=== PATIENT | female | born 1975 | race African-American/Black ===

== ENCOUNTER 2017-02-07 18:30 | Emergency (ER) | payer SELFPAY ==
[~2017-02-07] VITALS: Ht 170.2 cm; Wt 90.0 kg
[~2017-02-07 18:30] MED LIST: PREN0.01 PO
[2017-02-07 18:32] VITALS: BP 140/96; PULSE 89; RESP 13; TEMP 98.6; O2SAT 99
--- NOTE | 2017-02-07 19:55 | PD ---
HPI Chief Complaint: Respiratory Symptoms Time Seen by Provider: 19:49 Travel History International Travel<30 days: No Contact w/Intl Traveler<30days: No Traveled to known affect area: No History of Present Illness HPI 41 year-old female presents to the emergency department for complaint of left upper back and anterior chest pain with shortness of breath. Symptoms began suddenly this morning. Patient states she presented to the emergency department because of complaint of shortness of breath. Patient denies any previous history of similar symptoms. Patient denies personal history of clotting disorder or family history of clotting disorder recent long distance travel or protracted bedrest her surgery also denies any history of hypertension dyslipidemia cardiac disease diabetes does admit to tobacco use and occasional marijuana use. Patient's had no fever no chills no cough no productive phlegm. Patient denies any pain in her legs or swelling in the calves or pain with ambulation. Patient denies abdominal pain. No nausea or vomiting. Patient states she felt well all day yesterday felt well last evening with a bed and awakened this morning feeling well was ironing her daughter's clothing and had sudden onset left upper back and chest pain. Patient describes it as sharp and worsened with dense inspiratory effort. Patient took a one-time dose of ibuprofen 200 mg as taken no other medications. Patient rates her pain 8-10 over 10 in intensity. PFSH Past Medical History Narrative Medical Hernia, herniorrhaphy, , tubal ligation; tobacco use; marijuana use; med nursing notes reviewed Medical History: Denies Significant Hx Cardiovascular Problems: No Diminished Hearing: No Endocrine: No Genitourinary: No Immune Disorder: No Musculoskeletal: No Neurologic: No Psychiatric: No Respiratory: No Immunizations Current: No ?: Not LMP: JAN 2017 : 5 Para: 5 Miscarriage: 0 : 0 Tubal Ligation: Yes (ON 06/2015) Past Surgical History Section: Yes (1) Gynecologic Surgery: Yes (, TUBAL LIGATION ) Other Surgery: Yes (herina ) Social History Alcohol Use: No Tobacco Use: Yes (1 PPD x 10 years) Substance Use: No Allergies-Medications (Allergen,Severity, Reaction): Coded Allergies: *MDRO Multi-Drug Resistant Organism (Verified Adverse Reaction, Unknown, ) MRSA PCR Screen positive 04/20/15. MRSA abdominal wound 04/2015 Reported Meds & Prescriptions Reported Meds & Active Scripts Active Robaxin (Methocarbamol) 750 Mg Tab 750 Mg PO Q6HR Ibuprofen 800 Mg Tab 800 Mg PO Q8H PRN Review of Systems Except as stated in HPI: all other systems reviewed are Neg Physical Exam Narrative GENERAL: Well-developed well-nourished female in no acute distress no respiratory distress SKIN: Warm and dry. HEAD: Normocephalic. EYES: No scleral icterus. No injection or drainage. NECK: Supple, trachea midline. No JVD or lymphadenopathy. Right upper back and trapezius distribution mild tenderness to palpation. CARDIOVASCULAR: Regular rate and rhythm without murmurs, gallops, or rubs. Chest wall: Nontender to palpation. RESPIRATORY: Breath sounds equal bilaterally. No accessory muscle use. GASTROINTESTINAL: Abdomen soft, non-tender, nondistended. MUSCULOSKELETAL: No cyanosis, or edema. Negative Homans sign. Bilateral radial and dorsalis pedis pulses 2+ to palpation. Capillary refill brisk and less than 2 seconds per digit. BACK: Nontender without obvious deformity. No CVA tenderness. Data Data Last Documented VS Vital Signs Date Time Temp Pulse Resp B/P (MAP) Pulse Ox O2 Delivery O2 Flow Rate FiO2 02/07/17 21:27 84 18 134/62 (86) 97 02/07/17 19:57 Room Air 02/07/17 18:32 98.6 Orders Orders Chest, Pa & Lat (02/07/17 ) Ed Urine Pregnancytest Poc (02/07/17 19:49) Urinalysis - C+S If Indicated (02/07/17 19:49) Electrocardiogram (02/07/17 ) Troponin I (02/07/17 19:49) Ketorolac Inj (Toradol Inj) (02/07/17 20:00) D-Dimer (02/07/17 19:49) Complete Blood Count With Diff (02/07/17 19:49) Basic Metabolic Panel (Bmp) (02/07/17 19:49) Methocarbamol (Robaxin) (02/07/17 21:15) Labs Laboratory Tests Test 02/07/17 20:00 02/07/17 20:05 Urine Color YELLOW Urine Turbidity CLEAR Urine pH 6.5 Urine Specific [place] 1.028 Urine Protein TRACE mg/dL Urine Glucose (UA) NEG mg/dL Urine Ketones NEG mg/dL Urine Occult Blood SMALL Urine Nitrite NEG Urine Bilirubin NEG Urine Urobilinogen 2.0 MG/DL Urine Leukocyte Esterase TRACE Urine RBC 22 /hpf Urine WBC 2 /hpf Urine Squamous Epithelial Cells 4 /hpf Urine Mucus FEW /lpf Microscopic Urinalysis Comment CULT NOT INDICATED White Blood Count 8.9 TH/MM3 Red Blood Count 3.50 MIL/MM3 Hemoglobin 11.7 GM/DL Hematocrit 34.5 % Mean Corpuscular Volume 98.5 FL Mean Corpuscular Hemoglobin 33.3 PG Mean Corpuscular Hemoglobin Concent 33.8 % Red Cell Distribution Width 12.7 % Platelet Count 286 TH/MM3 Mean Platelet Volume 7.2 FL Neutrophils (%) (Auto) 55.1 % Lymphocytes (%) (Auto) 35.5 % Monocytes (%) (Auto) 6.3 % Eosinophils (%) (Auto) 2.2 % Basophils (%) (Auto) 0.9 % Neutrophils # (Auto) 4.9 TH/MM3 Lymphocytes # (Auto) 3.2 TH/MM3 Monocytes # (Auto) 0.6 TH/MM3 Eosinophils # (Auto) 0.2 TH/MM3 Basophils # (Auto) 0.1 TH/MM3 CBC Comment DIFF FINAL Differential Comment D-Dimer Quantitative (PE/DVT) 0.32 MG/L FEU Blood Urea Nitrogen 12 MG/DL Creatinine 0.73 MG/DL Random Glucose 87 MG/DL Calcium Level 8.6 MG/DL Sodium Level 138 MEQ/L Potassium Level 3.6 MEQ/L Chloride Level 107 MEQ/L Carbon Dioxide Level 26.2 MEQ/L Anion Gap 5 MEQ/L Estimat Glomerular Filtration Rate 107 ML/MIN Troponin I LESS THAN 0.02 NG/ML MDM Medical Decision Making Medical Screen Exam Complete: Yes Emergency Medical Condition: Yes Medical Record Reviewed: Yes Interpretation(s) EKG sinus rhythm rate [address] elevation or injury pattern change noted age-indeterminate QS noted septally Last Impressions Chest X-Ray 02/07/17 0000 Signed Impressions: Service Date/Time: Tuesday, February 07, 2017 20:28 - CONCLUSION: No acute disease. Marcial Roman MD Vital Signs Date Time Temp Pulse Resp B/P (MAP) Pulse Ox O2 Delivery O2 Flow Rate FiO2 02/07/17 19:57 66 16 150/80 (103) 100 Room Air 02/07/17 18:52 18 97 Room Air 02/07/17 18:32 98.6 89 13 140/96 (111) 99 CBC & BMP Diagram 02/07/17 20:05 Calcium Level 8.6 Differential Diagnosis Shortness of breath, pleurisy, costochondritis, musculoskeletal pain, pneumothorax, PE, esophageal spasm, ACS Narrative Course IV access obtained systems collected and sent for resulting EKG and chest x-ray ordered; patient administered Toradol 30 mg IV after [id number] hCG EKG sinus rhythm no acute ST elevation or injury pattern change age- indeterminate QS noted septally Chest x-ray no lobar infiltrate no pneumothorax no acute process CBC is automated differential values in normal range; BNP values in normal range ; troponin I less than 0.02, not elevated; d-dimer 0.32, not elevated; urinalysis a few red blood cells otherwise no acute process a culture is not indicated normal specific gravity no protein; point hCG is negative Patient markedly improved after IV Toradol; patient did note recurrent pain when she reached across the stretcher to try to reach the call sparks because recurrent pain again supportive of left upper back parascapular trapezius strain. No upper or lower extremity numbness tingling or weakness and no tenderness of the cervical spine. No radiculopathy. Patient is stable for outpatient management and will be given prescription for weight-based ibuprofen and Robaxin. Diagnosis Primary Impression: Strain of left trapezius muscle Qualified Codes: S46.812A - Strain of other muscles, fascia and tendons at shoulder and upper arm level, left arm, initial encounter Referrals: Primary Care Physician call for appointment Patient Instructions: General Instructions Additional Instructions: Take medications as prescribed May apply ice pack intermittently to areas soft tissue inflammation for the first 12-24 hours then may change to moist heat for comfort Follow-up with primary care provider Return to the emergency for any concerns or change in condition Avoid lifting anything greater than 5 pounds with the left upper extremity over the next 2-3 days or twisting/reaching across the body or overhead. Med/Other Pt SpecificInfo: Prescription(s) given Scripts Methocarbamol (Robaxin) 750 Mg Tab 750 MG PO Q6HR for Muscle Spasm, #12 TAB 0 Refills Prov: Norma Jane MD 02/07/17 Ibuprofen (Ibuprofen) 800 Mg Tab 800 MG PO Q8H Y for PAIN GREATER THAN 5, #10 TAB 0 Refills Prov: Norma Jane MD 02/07/17 Disposition: 01 DISCHARGE HOME Condition: Stable Norma Jane MD Feb 07, 2017 19:55
[2017-02-07 19:57] VITALS: BP 150/80; PULSE 66; RESP 16; O2SAT 100
[2017-02-07] MEDS ORDERED: KETOROLAC TROMETHAMINE 30 MG/ML (IVP) VIAL IV PUSH ONE (20:00)
[2017-02-07 20:20] LABS: AUTOMATED NEUTROPHIL # 4.9 TH/MM3 (1.8-7.7); BASOPHIL # 0.1 TH/MM3 (0-0.2); BASOPHIL % 0.9 % (0.0-2.0); EOSINOPHIL # 0.2 TH/MM3 (0-0.4); EOSINOPHIL % 2.2 % (0.0-4.0); HEMATOCRIT 34.5 % (35.0-46.0); HEMO FLAGS DIFF FINAL; LYMPH % 35.5 % (9.0-44.0); LYMPHOCYTE # 3.2 TH/MM3 (1.0-4.8); MEAN CELL VOLUME 98.5 FL (80.0-100.0); MEAN CORPUSCULAR HEMOGLOBIN 33.3 PG (27.0-34.0); MEAN CORPUSCULAR HGB CONC 33.8 % (32.0-36.0); MONO % 6.3 % (0.0-8.0); NEUT % 55.1 % (16.0-70.0); PLATELET COUNT 286 TH/MM3 (150-450); RED CELL DISTRIBUTION WIDTH 12.7 % (11.6-17.2); WHITE BLOOD COUNT 8.9 TH/MM3 (4.0-11.0)
[2017-02-07 20:43] LABS: BLOOD, URINE SMALL (NEG); COMMENT (UR) CULT NOT INDICATED; CULTURE IF INDICATED CULT NOT INDICATED; GLUCOSE,URINE NEG (NEG); KETONE, URINE NEG (NEG); MUCUS URINE FEW /lpf (OCC); NITRITE,URINE NEG (NEG); PH, URINE 6.5 (5.0-8.5); SQUAMOUS EPITHELIAL CELL URINE 4 /hpf (0-5); URINE COLOR YELLOW (YELLW/STRAW)
[2017-02-07 20:45] LABS: ANION GAP 5 MEQ/L (5-15); BICARBONATE 26.2 MEQ/L (21.0-32.0); BLOOD UREA NITROGEN 12 MG/DL (7-18); CHLORIDE 107 MEQ/L (98-107); GLOMERULAR FILTRATION RATE 107 ML/MIN (>89); POTASSIUM 3.6 MEQ/L (3.5-5.1); SODIUM (NA) 138 MEQ/L (136-145)
--- NOTE | 2017-02-07 20:50 | RADRPT ---
EXAM DATE/TIME: 02/07/2017 20:28 [facility] COMPARISON: No previous studies available for comparison. INDICATIONS : Chest pain and shortness of breath. MEDICAL HISTORY : None. SURGICAL HISTORY : None. ENCOUNTER: Initial ACUITY: 1 day PAIN SCORE: 8/10 LOCATION: Bilateral chest FINDINGS: PA and lateral views of the chest demonstrate the lungs to be symmetrically aerated without evidence of mass, infiltrate or effusion. The cardiomediastinal contours are unremarkable. Osseous structure s are intact. CONCLUSION: No acute disease. Marcial Roman MD on February 07, 2017 at 20:48 Board Certified Radiologist. This report was verified electronically.
[2017-02-07] MEDS ORDERED: IBUP800T23 PO (21:10)
[2017-02-07] MEDS ORDERED: ROBA750T PO (21:10)
[2017-02-07] MEDS ORDERED: METHOCARBAMOL 500 MG TAB PO ONE (21:15)
[2017-02-07 21:27] VITALS: BP 134/62
--- NOTE | 2017-02-08 14:56 | EKG ---
Date Performed: 02/07/2017 Time Performed: 19:59:30 PTAGE: 41 years EKG: Sinus rhythm Poor initial anterior forces, which are probably a normal variant Otherwise within normal limits ABN ORMAL ECG NO PREVIOUS TRACING DOCTOR: Jose Doyle Interpretating Date/Time 02/08/2017 14:55:43
== END 2017-02-07 21:29 | disposition home or self-care (01) ==
LOC: NEPC 18:30
DX: S46.812A Strain of other muscles, fascia and tendons at shoulder and upper arm level, left arm, initial encounter (principal); X58.XXXA Exposure to other specified factors, initial encounter
CPT/HCPCS: 71020; 80048; 81001; 84484; 84703; 85025; 85379; 93005; 96374; 99285; J1885